=== PATIENT | male | born 1980 | race Caucasian/White ===

== ENCOUNTER 2025-04-13 15:42 | Emergency (ER) | payer OTHER ==
[2025-04-13] MEDS ORDERED: METHYLPREDNISOLONE 125 MG INJ ONE (16:41)
[2025-04-13] MEDS ORDERED: KETOROLAC 30 MG/ML INJ ONE (16:46)
--- NOTE | 2025-04-13 17:09 | ER ---
Nurse's Notes [facility] Name: Taz Gilliam Jr Age: 44 yrs Sex: Male : 1980 Arrival Date: 04/13/2025 Time: 15:42 Bed DX3 Private MD: Diagnosis: Low back pain Presentation: 04/13 16:00 Chief complaint: Patient states: Back pain for 4 months. Coronavirus screen: Client ll1 denies travel out of the [place] in the last 14 days. At this time, the client does not indicate any symptoms associated with coronavirus-19. Ebola Screen: Patient denies travel to an Ebola-affected area in the 21 days before illness onset. Initial Sepsis Screen: Does the patient meet any 2 criteria? No. Patient's initial sepsis screen is negative. Does the patient have a suspected source of infection? No. Patient's initial sepsis screen is negative. Risk Assessment: Do you want to hurt yourself or someone else? Patient reports no desire to harm self or others. Onset of symptoms was January 14, 2025. 16:00 Method Of Arrival: Ambulatory ll1 16:00 Acuity: DENNY 4 ll1 Triage Assessment: 16:00 General: Appears uncomfortable, Behavior is calm, cooperative, appropriate for age. ll1 Pain: Complains of pain in back Quality of pain is described as aching, throbbing. Musculoskeletal: Reports pain in back. Historical: - Allergies: 15:59 SHELLFISH; ll1 - PMHx: 15:59 Hypertensive disorder; broken neck, collar bone FX; ll1 - PSHx: 15:59 hernia repair; ll1 16:10 Brain Aneurysm; Neck x 2; hb - Immunization history:: Adult Immunizations up to date. - Infectious Disease History:: Denies. - Social history:: Smoking status: Patient reports the use of cigarette tobacco products, smokes one pack cigarettes per day. Screenin:20 [facility] ED Fall Risk Assessment (Adult) History of falling in the last 3 months, ll1 including since admission No falls in past 3 months (0 pts) Confusion or Disorientation No (0 pts) Intoxicated or Sedated No (0 pts) Impaired Gait No (0 pts) Mobility Assist Device Used No (0 pt) Altered Elimination No (0 pt) Score/Fall Risk Level 0 - 2 = Low Risk Maintained a safe environment, Hourly rounding (assess needs \T\ fall precautionary measures) done. Abuse screen: Denies threats or abuse. Nutritional screening: No deficits noted. Tuberculosis screening: No symptoms or risk factors identified. Assessment: 16:54 Reassessment: No changes from previously documented assessment. Patient and/or family ll1 updated on plan of care and expected duration. Pain level reassessed. Patient is alert, oriented x 3, equal unlabored respirations, skin warm/dry/pink. 17:19 Reassessment: No changes from previously documented assessment. Patient and/or family ll1 updated on plan of care and expected duration. Pain level reassessed. Patient is alert, oriented x 3, equal unlabored respirations, skin warm/dry/pink. 17:20 Reassessment: Patient states feeling better. ll1 17:20 Neuro: Level of Consciousness is awake, alert, obeys commands, Oriented to person, ll1 place, time, situation. Vital Signs: 16:00 BP 153 / 90; Pulse 94; Resp 17; Temp 97.9; Pulse Ox 98% ; Weight 99.79 kg; Height 5 ft. ll1 8 in. ; Pain 10/10; 17:19 BP 126 / 76; Pulse 89; Resp 17; Pulse Ox 98% ; Pain 8/10; ll1 16:00 Body Mass Index 33.45 (99.79 kg, 172.72 cm) ll1 16:00 Pain Scale: Adult ll1 17:19 Pain Scale: Adult ll1 ED Course: 15:46 Patient arrived in ED. al6 15:48 Jaelyn Montes MD is Attending Physician. sp3 16:01 Triage completed. ll1 16:02 Arm band placed on. ll1 16:15 Provided Education on: ER procedures and process. ll1 17:20 No provider procedures requiring assistance completed. Patient did not have IV access ll1 during this emergency room visit. 17:21 Patient has correct armband on for positive identification. Bed in low position. ll1 Cardiac monitoring not applicable on this patient. Administered Medications: 16:53 Drug: Ketorolac IM 60 mg IM once Route: IM; Site: left vastus lateralis; ll1 17:20 Follow up: Response: No adverse reaction; Pain is decreased ll1 16:53 Drug: MethylPREDNISolone Sodium Succinate IM 125 mg IM once Route: IM; Site: right ll1 vastus lateralis; 17:20 Follow up: Response: No adverse reaction ll1 Medication: 17:21 VIS not applicable for this client. ll1 Outcome: 17:08 Discharge ordered by . sp3 17:21 Discharged to home ambulatory, ll1 17:21 Condition: stable 17:21 Discharge instructions given to patient, Instructed on discharge instructions, follow up and referral plans. medication usage, Demonstrated understanding of instructions, follow-up care, medications, Prescriptions given X 3, 17:21 Patient left the ED. ll1 Signatures: Kinza Ferguson, RN RN Stephan Catherine RN RN ll1 Jaelyn Montes MD MD sp3 Jenn Saenz6
--- NOTE | 2025-04-13 17:10 | EDPHYS ---
Physician Documentation [facility] Name: Taz Gilliam Jr Age: 44 yrs Sex: Male : 1980 Arrival Date: 04/13/2025 Time: 15:42 Bed DX3 Private MD: ED Physician Jaelyn Montes HPI: 04/13 17:06 This 44 yrs old Male presents to ER via Ambulatory with complaints of Back Pain. 3 17:06 44-year-old male with history of hypertension, prior neck fractures, now presents to [facility] the ED with acute on chronic low back pain which she has been dealing with for the last 4 months. 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 Mild tingling down posterior legs however no saddle anesthesia, difficulty walking or any other symptoms. Patient is in the process of trying to get MRI scheduled through outpatient channels. He is here for acute pain control. ROS otherwise negative.. Historical: - Allergies: 15:59 SHELLFISH; ll1 - PMHx: 15:59 Hypertensive disorder; broken neck, collar bone FX; ll1 - PSHx: 15:59 hernia repair; ll1 16:10 Brain Aneurysm; Neck x 2; hb - Immunization history:: Adult Immunizations up to date. - Infectious Disease History:: Denies. - Social history:: Smoking status: Patient reports the use of cigarette tobacco products, smokes one pack cigarettes per day. ROS: 17:07 Constitutional: Negative for fever, chills, and weight loss, Eyes: Negative for injury, sp3 pain, redness, and discharge, ENT: Negative for injury, pain, and discharge, Neck: Negative for injury, pain, and swelling, Cardiovascular: Negative for chest pain, palpitations, and edema, Respiratory: Negative for shortness of breath, cough, wheezing, and pleuritic chest pain, Abdomen/GI: Negative for abdominal pain, nausea, vomiting, diarrhea, and constipation, MS/Extremity: Negative for injury and deformity, Skin: Negative for injury, rash, and discoloration, Neuro: Negative for headache, weakness, numbness, tingling, and seizure, Psych: Negative for depression, anxiety, suicide ideation, homicidal ideation, and hallucinations, Allergy/Immunology: Negative for hives, rash, and allergies, Endocrine: Negative for neck swelling, polydipsia, polyuria, polyphagia, and marked weight changes, Hematologic/Lymphatic: Negative for swollen nodes, abnormal bleeding, and unusual bruising, 17:07 All other systems are negative, Exam: 17:07 Constitutional: This is a well developed, well nourished patient who is awake, alert, sp3 and in no acute distress. Head/Face: Normocephalic, atraumatic. Eyes: Pupils equal round and reactive to light, extra-ocular motions intact. Lids and lashes normal. Conjunctiva and sclera are non-icteric and not injected. Cornea within normal limits. Periorbital areas with no swelling, redness, or edema. ENT: Nares patent. No nasal discharge, no septal abnormalities noted. External auditory canals are clear. Oropharynx with no redness, swelling, or masses, exudates, or evidence of obstruction, uvula midline. Mucous membranes moist. Neck: Trachea midline, no thyromegaly or masses palpated, and no cervical lymphadenopathy. Supple, full range of motion without nuchal rigidity, or vertebral point tenderness. No Meningismus. Chest/axilla: Normal chest wall appearance and motion. Nontender with no deformity. No lesions are appreciated. Cardiovascular: Regular rate and rhythm with a normal S1 and S2. No gallops, murmurs, or rubs. Normal PMI, no JVD. No pulse deficits. Respiratory: Lungs have equal breath sounds bilaterally, clear to auscultation and percussion. No rales, rhonchi or wheezes noted. No increased work of breathing, no retractions or nasal flaring. Abdomen/GI: Soft, non-tender, with normal bowel sounds. No distension or tympany. No guarding or rebound. No evidence of tenderness throughout. Skin: Warm, dry with normal turgor. Normal color with no rashes, no lesions, and no evidence of cellulitis. MS/ Extremity: Pulses equal, no cyanosis. Neurovascular intact. Full, normal range of motion. Neuro: Awake and alert, GCS 15, oriented to person, place, time, and situation. Cranial nerves II-XII grossly intact. Motor strength 5/5 in all extremities. Sensory grossly intact. Cerebellar exam normal. Normal gait. Psych: Awake, alert, with orientation to person, place and time. Behavior, mood, and affect are within normal limits. 17:07 Back: Pain to palpation in the musculature lower back. Normal neurological exam. Normal vital signs., Vital Signs: 16:00 BP 153 / 90; Pulse 94; Resp 17; Temp 97.9; Pulse Ox 98% ; Weight 99.79 kg; Height 5 ft. ll1 8 in. ; Pain 10/10; 17:19 BP 126 / 76; Pulse 89; Resp 17; Pulse Ox 98% ; Pain 8/10; ll1 16:00 Body Mass Index 33.45 (99.79 kg, 172.72 cm) ll1 16:00 Pain Scale: Adult ll1 17:19 Pain Scale: Adult ll1 MDM: 16:05 Medical Screening Exam initiated sp3 17:08 Data reviewed: vital signs, nurses notes. ED course: 44-year-old male with acute on sp3 chronic low back pain. Outpatient plain films have been negative. Patient will get ketorolac and Solu-Medrol IM and will be discharged home on tramadol, diclofenac and Medrol Dosepak. Follow-up with outpatient imaging through his existing channels.. Administered Medications: 16:53 Drug: Ketorolac IM 60 mg IM once Route: IM; Site: left vastus lateralis; ll1 17:20 Follow up: Response: No adverse reaction; Pain is decreased ll1 16:53 Drug: MethylPREDNISolone Sodium Succinate IM 125 mg IM once Route: IM; Site: right ll1 vastus lateralis; 17:20 Follow up: Response: No adverse reaction ll1 Disposition Summary: 04/13/25 17:08 Discharge Ordered Notes: Location: Home sp3 Condition: Stable sp3 Diagnosis - Low back pain sp3 Followup: sp3 - With: Private Physician - When: Upon discharge from the Emergency Department - Reason: Continuance of care Discharge Instructions: - Discharge Summary Sheet sp3 - Acute Back Pain, Adult sp3 Forms: - Medication Reconciliation Form sp3 - Antibiotic Education sp3 - Prescription Opioid Use sp3 - Patient Portal Instructions sp3 - Leadership Thank You Letter sp3 Prescriptions: - Diclofenac Sodium 75 mg Oral Tablet Sustained Release - take 1 tablet ORAL route 2 times per day; 30 tablet; Refills: 0, Product sp3 Selection Permitted - Tramadol 50 mg Oral Tablet - take 1 tablet ORAL route every 8 hours as needed; 12 tablet; Refills: 0, sp3 Product Selection Permitted - Medrol (Jaun) 4 mg Oral Tablets, Dose Pack - take 1 tablet ORAL route as directed - follow package instructions; 1 packet; sp3 Refills: 0, Product Selection Permitted Signatures: Kinza Ferguson, RN RN Stephan Bermeo RN RN ll1 Jaelyn Montes, MD LEE sp3
[2025-04-13 17:26] VITALS: TEMP 97.9; O2SAT 98
[2025-04-13 17:28] VITALS: BP 126/76
== END 2025-04-13 17:21 | disposition home or self-care (01) ==
LOC: ER 15:42
DX: M54.50 Low back pain, unspecified (principal); F17.210 Nicotine dependence, cigarettes, uncomplicated
CPT/HCPCS: J2919